=== PATIENT | female | born 1955 | race Caucasian/White ===

== ENCOUNTER 2017-05-02 00:28 | Day surgery (SDC) | payer BC ==
[2017-05-02] VITALS (7 sets, daily range): BP systolic 99–138; BP diastolic 55–74
[~2017-05-02] VITALS: Ht 157.5 cm; Wt 113.9 kg
[~2017-05-02 00:28] MED LIST: ALPR-429 PO; ASPI-1471 PO; ASPI-715 PO; BLOO-725 MC; BLOO-729 MC; BLOO1STR16 MC; CELE-1 PO; CINN500C12 PO; CIP500 PO; DILT180C4 PO; DILT180C73 PO; DILT180C80 PO; DYA PO; ENO40I SQ; ENOX120D7 SQ; FERR-41 PO; FISH OIL 1,2001 CAP PO; FLAX100041 PO; FLU45SYR17 IM; FLU60SYR30 IM ONLY; FOL1 PO; FOLI20CA2 PO; GLIM2TAB43 PO; GLIM4TAB49 PO; GLIM4TAB50 PO; GLUC-232 PO; IRO150 PO; KET10 PO; LEVO-85 PO; LISI-347 PO; LISI-353 PO; LISI-362 PO; MET500 PO; METF-1 PO; METF-407 PO; METF-410 PO; METF-415 PO; METXR500 PO; MULT-820 PO; MULT-912 PO; NEOM10SO23 OT; OMEG-24 PO; OMEG-41 PO; PAN40 PO; PER PO; PHEN15CA69 PO; PROBIOTIC1 EACH PO; RAMI10CA72 PO; RAMI10TA PO; RAMI5CAP72 PO; SERT-181 PO; SERT-184 PO; SIMV-49 PO; SIMV-54 PO; SITA100T PO; SULF-198 PO; TRIA1CAP86 PO; UBID100C48 PO; VITA1CAP46 PO; WARF-12 PO; WARF-18 PO; WARF2.5T11 PO; WARF7.5T27 PO
[2017-05-02] MEDS ORDERED: PROPOFOL EMUL(*) 10MG/ML 20 ML 40 ML ONE (07:30)
--- NOTE | 2017-05-02 07:37 | Post Operative Progress Note ---
Post Operative Progress Note Date: May 02, 2017 Time: 11:28 Surgeon: cristela Anesthesia: dr sevilla Pre-Op Diagnosis: personal history of colon cancer Post-Op Diagnosis: sigmoid diverticulosis Procedure(s): colonoscopy DEENA HERNANDEZ MD May 02, 2017 07:37
--- NOTE | 2017-05-02 07:38 | Short(Outpt) Discharge Summary ---
Discharge Summary Reason for Hosp/Final Diag: (1) Encounter for colonoscopy due to history of colon cancer Hospital Course & Plan: sigmoid diverticulosis Departure Discharge to: Home Discharge Instructions Home Meds Active Scripts Blood Sugar Diagnostic (CONTOUR) 1 Each Strip, 1 EACH MC DAILY, #100 STRIP 11 Refills Prov:TAURUS MORELOS MD 04/05/17 Glimepiride (GLIMEPIRIDE) 2 Mg Tablet, 2 MG PO QDAY, #1 TAB Prov:TAURUS MORELOS MD 03/06/17 Metformin Hcl (METFORMIN HCL) 850 Mg Tablet, 1 TAB PO TID, #270 TAB 0 Refills Prov:TAURUS MORELOS MD 12/05/16 Sertraline Hcl (SERTRALINE HCL) 100 Mg Tablet, 1 TAB PO QDAY, #90 TAB 3 Refills Prov:TAURUS MORELOS MD 09/12/16 Blood-Glucose Control, Low (CONTOUR) 1 Each Each, EACH MC, #1 Prov:TAURUS MORELOS MD 08/08/16 Lisinopril/Hydrochlorothiazide (LISINOPRIL-HCTZ 20-12.5 MG TAB) 1 Each Tablet, 1 TAB PO QAM, #90 TAB 4 Refills Prov:TAURUS MORELOS MD 05/21/16 Lisinopril (LISINOPRIL) 10 Mg Tablet, 1 TAB PO QDAY, #90 TAB 3 Refills Prov:TAURUS MORELOS MD 05/15/16 Simvastatin (SIMVASTATIN) 40 Mg Tablet, 1 TAB PO QHS, #90 TAB 3 Refills Prov:TAURUS MORELOS MD 05/15/16 Reported Medications Warfarin Sodium (WARFARIN SODIUM) 5 Mg Tablet, 5 MG PO QFRIDAYS, TAB 04/30/17 Vitamin B Complex (VITAMIN B COMPLEX) 1 Each Capsule, 1 EACH PO QDAY, CAPSULE 04/30/17 Ubidecarenone (COQ-10) 100 Mg Capsule, 100 MG PO QDAY, CAPSULE 04/30/17 Warfarin Sodium (WARFARIN SODIUM) 2.5 Mg Tablet, 2.5 MG PO QDAY 04/30/17 Flaxseed Oil (FLAX SEED OIL) 1,000 Mg Capsule, 1000 MG PO BID, CAPSULE 02/23/14 Discontinued Scripts Warfarin Sodium (WARFARIN SODIUM) 5 Mg Tablet, 1 TAB PO QDAY, #30 TAB 5 Refills Prov:TAURUS MORELOS MD 01/18/17 Alprazolam (XANAX) 0.5 Mg Tablet, 1 TAB PO TID for Anxiety, #30 TAB Prov:TAURUS MORELOS MD 08/17/16 Diet: Regular Activity: As Tolerated DEENA HERNANDEZ MD May 02, 2017 07:38
[2017-05-02 09:53] LABS: INR 1.84
[2017-05-02] MEDS ORDERED: LIDOCAINE/SOD BICARB 8.4% SYR ID ONE (10:00)
[2017-05-02] MEDS ORDERED: MIDAZOLAM 2 MG/2 ML VIAL IVP ONE (10:00)
[2017-05-02] MEDS ORDERED: NORMOSOL R SOLN(*) 1000 ML BAG 1,000 ML IV PRN (10:00)
--- NOTE | 2017-05-02 16:19 | OPERATIVE REPORT 1 ---
EVENT DATE: May 02, 2017 SURGEON: Rikki Sands MD ANESTHESIOLOGIST: Cristian Willoughby MD ANESTHESIA: Sedation. PREOPERATIVE DIAGNOSIS Personal history of colon cancer. POSTOPERATIVE DIAGNOSIS Sigmoid diverticula; otherwise normal exam. PROCEDURE PERFORMED Colonoscopy. DESCRIPTION OF PROCEDURE The patient was placed in the left lateral decubitus position and given intravenous sedation. The rectal exam was unremarkable. The flexible colonoscope was inserted and advanced to the transverse colon and the anastomosis. This was widely patent. There was no inflammation or ulceration. No polyps or tumors at the anastomosis. The scope was slowly withdrawn. She had an excellent bowel prep. No abnormalities were noted in the transverse colon or descending colon. She had a few scattered diverticula in the sigmoid colon. No evidence of diverticulitis. The rectum was normal. The scope was retroflexed. That appeared to be normal. The patient tolerated the procedure well with no apparent complications. She will require a colonoscopy in five years due to her family history. VIPUL
== END 2017-05-02 12:25 | disposition home or self-care (01) ==
LOC: OR 00:28
PROVIDERS: ATTEND Surgery
DX: Z12.11 Encounter for screening for malignant neoplasm of colon (principal); K57.30 Diverticulosis of large intestine without perforation or abscess without bleeding; Z85.038 Personal history of other malignant neoplasm of large intestine; E11.9 Type 2 diabetes mellitus without complications
CPT/HCPCS: 00812; 36415; 36416; 45378; 82948; 85610; J2704

== ENCOUNTER → 2017-05-10 | Outpatient (CLI) | payer BC ==
--- NOTE | 2017-05-13 09:42 | RADIOLOGY IMAGING REPORT ---
FACILITY: [facility] [place] PATIENT NAME: FELIX REYES : [id number] MR: [id number] V: [id number] EXAM DATE: ORDERING PHYSICIAN: TAURUS MORELOS TECHNOLOGIST: Nicole Cervantes PROCEDURE:BILATERAL DIGITAL SCREENING MAMMOGRAM WITH CAD ASSISTED INTERPRETATION AND 3D BREAST TOMOSYNTHESIS. COMPARISON:Prior mammograms dated 06/21/15, 06/14/14, 06/10/13, 10/09/12, 04/10/12 and 04/09/12. INDICATIONS:SCREENING FINDINGS: There is a small amount of fibroglandular tissue throughout the breasts. The parenchymal pattern has remained stable when allowing for difference in mammographic technique and patient positioning. There is no evidence of malignant appearing mass, malignant appearing calcification or other secondary sign of malignancy in either breast. DIAGNOSTIC CATEGORY 2--BENIGN FINDING. RECOMMENDATIONS: ROUTINE MAMMOGRAM AND CLINICAL EVALUATION. IMPRESSION: Bi-RADS 2: No significant abnormality is seen. Images were reviewed with R2CAD and 3D breast tomosynthesis. Dictated by: Shruthi Pittman M.D. on 05/10/2017 at 14:57 Transcribed by: NANCI on 05/12/2017 at 14:48 Approved by: Shruthi Pittman M.D. on 05/13/2017 at 9:41 [facility]
== END ==
LOC: MAMO 01:34
PROVIDERS: ATTEND Emergency Medicine
DX: Z12.31 Encounter for screening mammogram for malignant neoplasm of breast (principal)
CPT/HCPCS: 77063; 77067

== ENCOUNTER → 2017-06-05 | Outpatient (CLI) | payer BC ==
[~2017-06-05] MED LIST changes: -WARF-18 PO; +WARF5TAB23 PO
== END ==
LOC: LAB 08:13
PROVIDERS: ATTEND Emergency Medicine
DX: E11.9 Type 2 diabetes mellitus without complications (principal)
CPT/HCPCS: 36415; 83036

== ENCOUNTER → 2017-07-31 | Outpatient (REF) | payer BC | LOC: ZZSENDIN 12:00 | PROVIDERS: ATTEND Surgery | DX: D22.39 Melanocytic nevi of other parts of face (principal) | CPT/HCPCS: 88305 ==

== ENCOUNTER → 2017-10-02 | Outpatient (CLI) | payer BC ==
[~2017-10-02] MED LIST changes: -METF-410 PO; +METF-411 PO
[2017-10-02 10:04] LABS: PLATELET COUNT, AUTOMATED 234 K/uL (150-450)
[2017-10-02 10:19] LABS: LDL CHOLESTEROL 65 mg/dl
== END ==
LOC: LAB 09:43
PROVIDERS: ATTEND Emergency Medicine
DX: E11.9 Type 2 diabetes mellitus without complications (principal)
CPT/HCPCS: 36415; 82040; 82247; 82310; 82374; 82435; 82465; 82565; 82947; 83036; 83718; 84075; 84132; 84155; 84295; 84450; 84460; 84478; 84520; 85007; 85027

== ENCOUNTER → 2017-10-07 | Outpatient (CLI) | payer BC ==
[~2017-10-07] MED LIST changes: +CIPR-345 PO
== END ==
LOC: LAB 08:37
PROVIDERS: ATTEND Emergency Medicine
DX: E11.9 Type 2 diabetes mellitus without complications (principal)
CPT/HCPCS: 81001

== ENCOUNTER → 2018-07-02 | Outpatient (CLI) | payer BC ==
[~2018-07-02] MED LIST changes: +FLU60SYR36 IM; -METF-411 PO; -METF-415 PO; +METF-450 PO; +METF-451 PO; +PNEI IM
== END ==
LOC: LAB 09:46
PROVIDERS: ATTEND Emergency Medicine
DX: E11.9 Type 2 diabetes mellitus without complications (principal)
CPT/HCPCS: 36415; 83036

== ENCOUNTER → 2018-10-23 | Outpatient (CLI) | payer BC ==
[~2018-10-23] MED LIST changes: +DICL100G39 TOP
== END ==
LOC: LAB 16:41
PROVIDERS: ATTEND Emergency Medicine
DX: E11.9 Type 2 diabetes mellitus without complications (principal)
CPT/HCPCS: 36415; 83036